=== PATIENT | female | born 1995 | race Caucasian/White ===

== ENCOUNTER → 2021-01-07 | Outpatient (CLI) | payer OTHER, SELFPAY ==
[2021-01-07 10:49] VITALS: BMI 23.3
[2021-01-11 20:07] LABS: Chlamydia By Nucleic Acid AMP Negative (Negative)
[2021-01-11 20:35] LABS: Gonococcus By Nucleic Acid AMP Negative (Negative)
[2021-01-13 20:42] LABS: HPV APTIMA, High Risk Negative (Negative); HPV Reflexed? YES, CHARGE PATIENT
== END | disposition home or self-care (01) ==
LOC: LABSPEC 13:55
PROVIDERS: Visit Provider Obstetrics & Gynecology
DX: Z12.4 Encounter for screening for malignant neoplasm of cervix (principal); Z11.3 Encounter for screening for infections with a predominantly sexual mode of transmission
CPT/HCPCS: 87491; 87591; 87624; 88175; G0145

== ENCOUNTER 2022-01-25 12:06 | Outpatient (CLI) | payer SELFPAY | END 2022-01-25 23:59 | disposition home or self-care (01) | PROVIDERS: PCP Family Medicine; Referring Provider Obstetrics & Gynecology; Visit Provider Obstetrics & Gynecology | DX: D68.59 Other primary thrombophilia (principal); Z82.49 Family history of ischemic heart disease and other diseases of the circulatory system ==

== ENCOUNTER → 2024-02-05 | Outpatient (CLI) | payer OTHER, SELFPAY ==
[2024-02-09 21:29] LABS: HPV Reflexed? NOT INDICATED
== END | disposition home or self-care (01) ==
PROVIDERS: PCP Family Medicine; Referring Provider Obstetrics & Gynecology; Visit Provider Obstetrics & Gynecology
DX: Z12.4 Encounter for screening for malignant neoplasm of cervix (principal)
CPT/HCPCS: 88175; G0145